=== PATIENT | female | born 1950 | race Caucasian/White ===

== ENCOUNTER → 2017-08-11 | Outpatient (CLI) | payer MEDICARE, OTHER | END | disposition home or self-care (01) | LOC: CFH 10:38 | PROVIDERS: ATTEND Nurse Practitioner | DX: Z12.31 Encounter for screening mammogram for malignant neoplasm of breast (principal); Z13.820 Encounter for screening for osteoporosis; M85.88 Other specified disorders of bone density and structure, other site; N95.8 Other specified menopausal and perimenopausal disorders | CPT/HCPCS: 77080; 77067 ==

== ENCOUNTER → 2018-08-19 | Outpatient (CLI) | payer MEDICARE | END | disposition home or self-care (01) | LOC: CFH 11:10 | PROVIDERS: ATTEND Nurse Practitioner | DX: Z12.31 Encounter for screening mammogram for malignant neoplasm of breast (principal) | CPT/HCPCS: 77063; 77067 ==

== ENCOUNTER 2018-10-16 11:03 | Inpatient (IN) | payer MEDICARE ==
[~2018-10-16] VITALS: Ht 157.5 cm; Wt 54.3 kg
[2018-10-16] MEDS ORDERED: HYDR-3240 PO (11:23)
--- NOTE | 2018-10-16 11:35 | NUR ---
First contact with pt. Pt c/o generalized body pain since Wednesday. Pt denies fever, cough, N/V/D, or any focal area of pain. Pt placed in gown, positioned for comfort in bed with warm blanket. Continuous heart, oxygen and BP monitors applied, all safety measures observed.
[2018-10-16 12:10] LABS: MEAN CORPUSCULAR HEMOGLOBIN 34.4 pg (27.0-34.8); MEAN CORPUSCULAR HGB CONC 33.5 g/dL (32.4-35.8); MEAN CORPUSCULAR VOLUME 102.7 fL (80-100); PLATELET COUNT 297 x10^3/uL (130-400); RED CELL DISTRIBUTION WIDTH 13.8 % (9.6-15.2)
--- NOTE | 2018-10-16 12:18 | NUR ---
UOB TO BATHROOM WITH URINE SAMPLE OBTAINED. STEADY GAIT BUT STATES SHE FEELS FATIGUED
[2018-10-16 12:20] LABS: ALANINE AMINOTRANSFERASE 27 U/L (12-78); ALBUMIN 3.3 g/dL (3.4-5.0); ANION GAP 8 mmol/L (5-15); CALCIUM 8.7 mg/dL (8.5-10.1); CHLORIDE 104 mmol/L (98-107)
[2018-10-16 12:23] LABS: ALKALINE PHOSPHATASE 89 U/L (45-117); CREATININE 0.98 mg/dL (0.55-1.02); TOTAL PROTEIN 7.2 g/dL (6.4-8.2)
[2018-10-16 12:26] LABS: BASOPHILS # (AUTO) 0.03 x10^3/uL (0-0.1); BASOPHILS % (AUTO) 0 % (0-1); EOSINOPHILS # (AUTO) 0.01 x10^3/uL (0-0.4); EOSINOPHILS % (AUTO) 0 % (1-7); LYMPHOCYTES # (AUTO) 0.81 x10^3/uL (1-3.4); LYMPHOCYTES % (AUTO) 4 % (22-44); MD SCAN; MONOCYTES # (AUTO) 1.92 x10^3/uL (0.2-0.8); MONOCYTES % (AUTO) 9 % (2-9); NEUTROPHILS # (AUTO) 19.82 x10^3/uL (1.8-6.8); NEUTROPHILS % (AUTO) 88 % (42-75)
[2018-10-16 12:39] LABS: CULTURE INDICATED? YES; MICROSCOPIC INDICATED
--- NOTE | 2018-10-16 12:54 | NUR ---
Pt requesting medication for pain.
--- NOTE | 2018-10-16 13:06 | NUR ---
Discussed pt's VS and condition with Dr. Tanner. Orders received for Tylenol and IVF.
[2018-10-16] MEDS ORDERED: ACETAMINOPHEN 500 MG TABLET ONE (13:08)
[2018-10-16] MEDS ORDERED: CEFTRIAXONE PMX 1GM/50ML 50 ML ONE (13:20)
[2018-10-16] MEDS ORDERED: SODIUM CHLORIDE FLUSH 10ML SYR IVF ONE (13:30)
[2018-10-16] MEDS ORDERED: SODIUM CHLORIDE 0.9% 1,000ML IVBOLUS ONE (13:30)
[2018-10-16] MEDS ORDERED: KETOROLAC 30 MG/1 ML IVPush ONE (13:30)
[2018-10-16] MEDS ORDERED: CEFTRIAXONE PMX 1GM/50ML 50 ML IVPB ONE (13:30)
[2018-10-16] MEDS ORDERED: ACETAMINOPHEN 500 MG TABLET PO ONE (13:30)
[2018-10-16] MEDS: SODIUM CHLORIDE 0.9% 1,000 ML IV SCH (13:56)
--- NOTE | 2018-10-16 13:56 | NUR ---
RECEIVED REPORT FROM AVTAR RN, PLAN OF CARE DISCUSSED
[2018-10-16] MEDS ORDERED: POLYETHYLENE GLYCOL 17 GM PACKET PO PRN (14:00)
--- NOTE | 2018-10-16 14:00 | NUR ---
Report to Clem STEVENSON.
[2018-10-16] MEDS ORDERED: KETOROLAC 30 MG/1 ML ONE (14:10)
--- NOTE | 2018-10-16 14:20 | NUR ---
MEDICATED WITH TORDOL FOR "ALL OVER BODYPAIN", ORDERED MEAL, PT DRINKING WATER, VISITING WITH NEPHEW, VERBALIZED NO OTHER NEEDS AT THIS TIME. PT WILL BE ADMITED TO MED/TELE.
--- NOTE | 2018-10-16 15:18 | NUR ---
PT STATES PAIN IS BETTER AT 50% OF MEAL, DRINKING WATER, IV INFUSING WELL. VERBALIZED NO OTHER NEEDS AT THIS TIME
--- NOTE | 2018-10-16 15:29 | NUR ---
REPORT TO JERRY STEVENSON, PLAN OF CARE DISCUSSED
[2018-10-16] MEDS: HEPARIN 5,000 UNITS/ML, 1ML SQ SCH ×2 (15:56→23:41)
[2018-10-16 16:15] VITALS: BP 115/69
[2018-10-16] MEDS: HYDROcodone/APAP 5/325 TABLET PO PRN ×2 (17:56→23:40)
[2018-10-16 20:43] VITALS: BP 111/67
[2018-10-16] MEDS: ACETAMINOPHEN 325 MG TABLET PO PRN (22:03)
[2018-10-16] MEDS ORDERED: PANTOPROZOLE 40MG TABLET PO SCH (23:30)
[2018-10-17 00:05] VITALS: BP 117/65
[2018-10-17] MEDS ORDERED: CEFTRIAXONE PMX 2GM/50ML 50 ML IV SCH (01:00)
[2018-10-17] MEDS: SODIUM CHLORIDE 0.9% 1,000 ML IV SCH (01:26)
[2018-10-17] MEDS: ACETAMINOPHEN 325 MG TABLET PO PRN ×4 (03:08→22:27)
[2018-10-17 06:00] LABS: MEAN CORPUSCULAR HEMOGLOBIN 33.7 pg (27.0-34.8); MEAN CORPUSCULAR HGB CONC 33.3 g/dL (32.4-35.8); MEAN CORPUSCULAR VOLUME 101.5 fL (80-100); MEAN PLATELET VOLUME 8.1 fL (7.4-10.4); PLATELET COUNT 233 x10^3/uL (130-400); RED BLOOD COUNT 3.09 x10^6/uL (3.82-5.3); RED CELL DISTRIBUTION WIDTH 13.4 % (9.6-15.2)
[2018-10-17 06:13] LABS: ALBUMIN 2.4 g/dL (3.4-5.0); ANION GAP 10 mmol/L (5-15); CALCIUM 7.3 mg/dL (8.5-10.1); CHLORIDE 113 mmol/L (98-107)
[2018-10-17 06:18] LABS: ALANINE AMINOTRANSFERASE 23 U/L (12-78); ALKALINE PHOSPHATASE 87 U/L (45-117); BILIRUBIN,TOTAL 0.8 mg/dL (0.2-1.0); CREATININE 0.77 mg/dL (0.55-1.02); TOTAL PROTEIN 5.5 g/dL (6.4-8.2)
[2018-10-17 06:22] LABS: MD YES
[2018-10-17 06:24] LABS: BAND#(MANUAL) 0.87 x10^3/uL; BANDS%(MANUAL) 4 % (0-7); LYMPH#(MANUAL) 1.31 x10^3/uL (1-3.4); LYMPHS% (MANUAL) 6 % (22-44); MONOS% (MANUAL) 11 % (2-9); SEG#(MANUAL) 17.22 x10^3/uL (1.8-6.8); SEGS% (MANUAL) 79 % (42-75)
[2018-10-17 06:25] LABS: POLYCHROMASIA 1+
[2018-10-17 06:26] LABS: <PLATELET ESTIMATE> ADEQUATE; <PLT MORPHOLOGY> NORMAL PLT MORPH; PMNS WITH VACUOLES 1+
[2018-10-17] MEDS: HEPARIN 5,000 UNITS/ML, 1ML SQ SCH ×2 (07:00→20:02)
[2018-10-17] MEDS: LACTOBACILLUS CHEW TABLET PO SCH ×3 (07:39→20:03)
[2018-10-17 07:45] VITALS: BP 143/88
[2018-10-17] MEDS: HYDROcodone/APAP 5/325 TABLET PO PRN ×4 (08:52→23:46)
[2018-10-17] MEDS: CEFTRIAXONE PMX 2GM/50ML 50 ML IV SCH (10:20)
[2018-10-17 12:45] VITALS: BP 112/68
[2018-10-17] MEDS ORDERED: SODIUM CHLORIDE 0.9% 1,000 ML IV SCH (13:56)
[2018-10-17] MEDS ORDERED: POTASSIUM CHLORIDE 20 MEQ TAB.ER.PRT PO ONE (17:00)
[2018-10-17 19:33] VITALS: BP 123/73
[2018-10-18 00:45] VITALS: BP 119/73
[2018-10-18] MEDS: HYDROcodone/APAP 5/325 TABLET PO PRN ×4 (05:40→20:52)
[2018-10-18 06:21] LABS: MEAN CORPUSCULAR HEMOGLOBIN 33.9 pg (27.0-34.8); MEAN CORPUSCULAR HGB CONC 32.8 g/dL (32.4-35.8); MEAN CORPUSCULAR VOLUME 103.5 fL (80-100); MEAN PLATELET VOLUME 8.2 fL (7.4-10.4); PLATELET COUNT 254 x10^3/uL (130-400); RED BLOOD COUNT 3.31 x10^6/uL (3.82-5.3); RED CELL DISTRIBUTION WIDTH 14.4 % (9.6-15.2)
[2018-10-18 06:35] LABS: CHLORIDE 115 mmol/L (98-107)
[2018-10-18 06:39] LABS: ANION GAP 8 mmol/L (5-15); CALCIUM 7.7 mg/dL (8.5-10.1); CREATININE 0.78 mg/dL (0.55-1.02)
[2018-10-18 06:45] LABS: MD YES
[2018-10-18 06:47] LABS: ANISOCYTOSIS 1+; BAND#(MANUAL) 0.68 x10^3/uL; BANDS%(MANUAL) 3 % (0-7); EOS#(MANUAL) 0.46 x10^3/uL (0.0-0.4); EOS% (MANUAL) 2 % (1-7); LYMPH#(MANUAL) 1.37 x10^3/uL (1-3.4); LYMPHS% (MANUAL) 6 % (22-44); MONOS#(MANUAL) 1.82 x10^3/uL (0.3-2.7); MONOS% (MANUAL) 8 % (2-9); POLYCHROMASIA 1+; SEG#(MANUAL) 18.47 x10^3/uL (1.8-6.8); SEGS% (MANUAL) 81 % (42-75)
[2018-10-18 06:48] LABS: <PLATELET ESTIMATE> ADEQUATE; <PLT MORPHOLOGY> NORMAL PLT MORPH
[2018-10-18] MEDS: HEPARIN 5,000 UNITS/ML, 1ML SQ SCH ×2 (08:20→20:54)
[2018-10-18] MEDS: LACTOBACILLUS CHEW TABLET PO SCH ×3 (08:20→20:52)
[2018-10-18] MEDS: ACETAMINOPHEN 325 MG TABLET PO PRN ×3 (08:26→21:02)
[2018-10-18 08:34] VITALS: BP 102/61
[2018-10-18] MEDS: SODIUM CHLORIDE 0.9% 1,000 ML IV SCH ×2 (10:07→23:23)
[2018-10-18] MEDS: CEFTRIAXONE PMX 2GM/50ML 50 ML IV SCH (10:33)
[2018-10-18 13:14] VITALS: BP 115/77
[2018-10-18] MEDS: AMPICILLIN 2 GM in SODIUM CHLORIDE 0.9% 100 ML IV SCH ×2 (15:47→20:54)
[2018-10-18 21:10] VITALS: BP 161/85
[2018-10-19 00:49] VITALS: BP 144/77
[2018-10-19] MEDS: HYDROcodone/APAP 5/325 TABLET PO PRN ×5 (00:54→20:34)
[2018-10-19] MEDS ORDERED: LOSA1TAB22 PO (00:57)
[2018-10-19] MEDS ORDERED: VALA500T4 PO (00:58)
[2018-10-19] MEDS ORDERED: PANT40GR PO (00:59)
[2018-10-19] MEDS ORDERED: DOXE10CA PO (01:00)
[2018-10-19] MEDS: AMPICILLIN 2 GM in SODIUM CHLORIDE 0.9% 100 ML IV SCH ×4 (03:51→22:23)
[2018-10-19 06:08] LABS: MEAN CORPUSCULAR HEMOGLOBIN 33.8 pg (27.0-34.8); MEAN CORPUSCULAR HGB CONC 32.7 g/dL (32.4-35.8); MEAN CORPUSCULAR VOLUME 103.1 fL (80-100); MEAN PLATELET VOLUME 8.1 fL (7.4-10.4); PLATELET COUNT 308 x10^3/uL (130-400); RED BLOOD COUNT 3.11 x10^6/uL (3.82-5.3); RED CELL DISTRIBUTION WIDTH 14.6 % (9.6-15.2)
[2018-10-19 06:37] LABS: BASOPHILS # (AUTO) 0.02 x10^3/uL (0-0.1); BASOPHILS % (AUTO) 0 % (0-1); EOSINOPHILS # (AUTO) 0.37 x10^3/uL (0-0.4); EOSINOPHILS % (AUTO) 2 % (1-7); LYMPHOCYTES # (AUTO) 1.19 x10^3/uL (1-3.4); LYMPHOCYTES % (AUTO) 7 % (22-44); MD SCAN; MONOCYTES # (AUTO) 1.14 x10^3/uL (0.2-0.8); MONOCYTES % (AUTO) 7 % (2-9); NEUTROPHILS # (AUTO) 14.64 x10^3/uL (1.8-6.8); NEUTROPHILS % (AUTO) 84 % (42-75)
[2018-10-19 07:08] VITALS: BP 133/65
[2018-10-19] MEDS: LACTOBACILLUS CHEW TABLET PO SCH ×3 (08:46→20:34)
[2018-10-19] MEDS: HEPARIN 5,000 UNITS/ML, 1ML SQ SCH ×2 (08:46→20:34)
[2018-10-19] MEDS: ACETAMINOPHEN 325 MG TABLET PO PRN ×2 (08:58→16:23)
[2018-10-19] MEDS: SODIUM CHLORIDE 0.9% 1,000 ML IV SCH (12:30)
[2018-10-19 13:49] VITALS: BP 159/82
[2018-10-19] MEDS ORDERED: DIPHENHYDRAMINE/ZINC CRM 2%, 30GM TP PRN (14:00)
[2018-10-19 20:00] VITALS: BP 123/67
[2018-10-20] MEDS: HYDROcodone/APAP 5/325 TABLET PO PRN ×2 (00:49→07:57)
[2018-10-20] MEDS: ACETAMINOPHEN 325 MG TABLET PO PRN (00:49)
[2018-10-20 01:00] VITALS: BP 160/85
[2018-10-20 01:40] VITALS: BP 146/73
[2018-10-20] MEDS: AMPICILLIN 2 GM in SODIUM CHLORIDE 0.9% 100 ML IV SCH ×2 (04:19→10:22)
[2018-10-20 05:51] LABS: BASOPHILS # (AUTO) 0.03 x10^3/uL (0-0.1); BASOPHILS % (AUTO) 0 % (0-1); EOSINOPHILS # (AUTO) 0.28 x10^3/uL (0-0.4); EOSINOPHILS % (AUTO) 2 % (1-7); LYMPHOCYTES # (AUTO) 1.31 x10^3/uL (1-3.4); LYMPHOCYTES % (AUTO) 11 % (22-44); MD NO; MEAN CORPUSCULAR HGB CONC 32.8 g/dL (32.4-35.8); MEAN CORPUSCULAR VOLUME 100.6 fL (80-100); MEAN PLATELET VOLUME 7.3 fL (7.4-10.4); MONOCYTES # (AUTO) 0.98 x10^3/uL (0.2-0.8); MONOCYTES % (AUTO) 8 % (2-9); NEUTROPHILS # (AUTO) 9.05 x10^3/uL (1.8-6.8); NEUTROPHILS % (AUTO) 78 % (42-75); PLATELET COUNT 316 x10^3/uL (130-400); RED BLOOD COUNT 3.23 x10^6/uL (3.82-5.3); RED CELL DISTRIBUTION WIDTH 14.4 % (9.6-15.2)
[2018-10-20] MEDS ORDERED: CARVEDILOL 3.125 MG TABLET PO SCH (07:30)
[2018-10-20 07:55] VITALS: BP 164/80
[2018-10-20] MEDS: LACTOBACILLUS CHEW TABLET PO SCH (07:57)
[2018-10-20] MEDS: HEPARIN 5,000 UNITS/ML, 1ML SQ SCH (07:58)
[2018-10-20] MEDS ORDERED: CARV3.1212 PO (09:53)
[2018-10-20] MEDS ORDERED: AMPI500C2 PO (09:53)
[2018-10-20] MEDS ORDERED: ACID1TAB7 PO (09:53)
[2018-10-20] MEDS ORDERED: ACET325T14 PO (09:53)
[2018-10-20 09:55] VITALS: BP 162/84
[2018-10-20] MEDS ORDERED: DIPH28.33 TP (11:51)
== END 2018-10-20 14:15 | disposition home or self-care (01) | DRG 872 ==
LOC: ED 14:38 → EDIP 15:25 → 4WST 15:46 → DCLOUNGE 10-20 14:15
PROVIDERS: ADMIT Family Medicine; ATTEND Family Medicine
DX: A41.9 Sepsis, unspecified organism (principal); N10 Acute pyelonephritis; B95.2 Enterococcus as the cause of diseases classified elsewhere; B96.20 Unspecified Escherichia coli [E. coli] as the cause of diseases classified elsewhere; E86.0 Dehydration; E87.6 Hypokalemia; Z88.3 Allergy status to other anti-infective agents; G89.4 Chronic pain syndrome; Z88.8 Allergy status to other drugs, medicaments and biological substances; I10 Essential (primary) hypertension; L29.9 Pruritus, unspecified
CPT/HCPCS: 36415; 71046; 80048; 80053; 81001; 83605; 83735; 84145; 85025; 85651; 86140; 87040; 87077; 87086; 87186; 93005; 96365; 96375; G0378; J0290; J0696; J1644; J1885; J7030